=== PATIENT | female | born 1965 | race Caucasian/White ===

== ENCOUNTER 2017-03-05 13:04 | Observation (INO) | payer OTHER ==
[2017-03-05] MEDS ORDERED: diphenhydrAMINE INJ 50 MG/ML VIAL IVP STA (14:15)
[2017-03-05] MEDS ORDERED: SODIUM CHLORIDE 0.9% 1,000 ML IV ONE (14:15)
[2017-03-05] MEDS ORDERED: HYDROmorphone 1 MG/ML SYRINGE IVP STA (14:15)
[2017-03-05] MEDS ORDERED: PROCHLORPERAZINE 10 MG/2 ML VIAL IVP STA (14:15)
[2017-03-05] MEDS ORDERED: HYDROmorphone 1 MG/ML SYRINGE ONE (14:20)
[2017-03-05] MEDS ORDERED: diphenhydrAMINE INJ 50 MG/ML VIAL ONE (14:20)
[2017-03-05] MEDS ORDERED: PROCHLORPERAZINE 10 MG/2 ML VIAL ONE (14:21)
--- NOTE | 2017-03-05 14:24 | ED Physician Documentation ---
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 CC severe ROSAS for 6 days ROSAS is diffuse and sharp and stabbing severe - rates 03/25 presently reports a stiff neck but no fever no numbness or wekaness + NV denies trauma denies CO exposure states she has a migraine but on further questioning she does not actually have a hx of migraines, she gets a ROSAS maybe once a year, never had a ROSAS this bad or lasting this long Review of Systems Constitutional: denies: Fever, Chills Eyes: denies: Loss of vision Throat: denies: Sore throat Cardiac: denies: Chest pain / pressure Respiratory: denies: Dyspnea GI: reports: Nausea, Vomiting : denies: Now EGA (denies) Musculoskeletal: reports: Neck pain Neurologic: reports: Headache. denies: Focal weakness, Numbness, Head injury Endocrine: denies: Easy bruising / bleeding Immunocompromised: denies: Immunocompromised PD PAST MEDICAL HISTORY - Allergies Allergies/Adverse Reactions: Allergies Allergy/AdvReac Type Severity Reaction Status Date / Time No Known Drug Allergies Allergy Verified 03/05/17 13:08 PD ED PE NORMAL - Vitals Vital signs reviewed: Yes - General General: Alert and oriented X 3 - HEENT HEENT: PERRL, EOMI, Other (globes soft, no TA TTP) - Neck Neck: Other (can flex, states hurts) - Cardiac Cardiac: RRR - Respiratory Respiratory: No respiratory distress, Clear bilaterally - Derm Derm: Normal color - Extremities Extremities: No deformity - Neuro Neuro: Alert and oriented X 3, 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, No motor deficit, No sensory deficit - Psych Psych: Normal mood Results - Vitals Vitals: Vital Signs - 24 hr 03/05/17 03/05/17 03/05/17 13:06 14:20 15:38 Temperature 37.4 C 37.7 C H 38.4 C H Heart Rate 111 H 91 Respiratory 18 14 Rate Blood Pressure 139/88 H 133/84 H O2 Saturation 95 93 03/05/17 18:41 Temperature 37.1 C Heart Rate 88 Respiratory 20 Rate Blood Pressure 123/97 H O2 Saturation 95 Oxygen O2 Source Room air - Labs Labs: Microbiology 03/05/17 17:27 CSF Culture - Preliminary Cerebral Spinal Fluid Laboratory Tests 03/05/17 03/05/17 17:27 17:40 Sodium 133 L Potassium 3.6 Chloride 101 Carbon Dioxide 24 Anion Gap 8.0 BUN 15 Creatinine 0.6 Estimated GFR (MDRD) 106 Glucose 95 Calcium 8.2 L Total Bilirubin 0.9 AST 16 ALT 12 Alkaline Phosphatase 29 L Total Protein 6.7 Albumin 3.4 Globulin 3.3 Albumin/Globulin Ratio 1.0 Lipase 24 CSF Color COLORLESS CSF Clarity CLEAR Xanthrochromic ABSENT CSF WBC 325 H* CSF RBC 11 H CSF Cell Count Tube # CSF TUBE# 3 CSF Neutrophils 2 CSF Lymphocytes 85 H CSF Monocytes 13 L CSF Glucose 41 L CSF Total Protein 131 H - Rads (name of study) CTH Radiology: See rad report (neg) Procedures - Lumbar Puncture Position: Laying right side Location: L4-L5 Anesthesia: Local lidocaine CSF: Clear Other: Sterile prep and drape, Patient tolerated well, No complications, Bleeding, Other (written informed consent) PD MEDICAL DECISION MAKING - ED course ED course: pt initially afebrile, waiting for CT then spiked fever will get LP as well - was considering to rout SAH already CSF clear - gave 2 G rocephin pending results CSF low glucose high protein > 300 WBC (mostly lymphocytes) no organisms identified on gram stain hopefully viral - pt has been ill for 6 days and is still fairly well appearing but low glucose and high protein and > 100 WBC concerning gave vanco and ampicillin as well and pt placed in isolation she is on staff at [employer] and was working yesterday - house sup advised to determine need to identify who might have been exposed and determine who/when to consider prophylaxis Departure - Departure Disposition: ED Place in Observation Clinical Impression: Meningitis Condition: Fair
--- NOTE | 2017-03-05 17:02 | CT Preliminary Report ---
Exam: CT Head W/O IMPRESSION: Normal head CT. [facility] SITE ID: [id number]
--- NOTE | 2017-03-05 17:05 | CT Report ---
EXAM: CT HEAD EXAM DATE: 03/05/2017 04:51 PM. CLINICAL HISTORY: Severe stabbing ROSAS, no hx same. COMPARISON: None. TECHNIQUE: Multiaxial CT images were obtained from the foramen magnum to the vertex. IV contrast: Non e. Reformats: Coronal. In accordance with CT protocol optimization, one or more of the following dose reduction techniques w ere utilized for this exam: automated exposure control, adjustment of mA and/or KV based on patient s ize, or use of iterative reconstructive technique. FINDINGS: Parenchyma: No intraparenchymal hemorrhage. No evidence of mass, midline shift, or CT findings of inf arction. Smith-white differentiation is distinct. Extraaxial Spaces: Normal for age. No subdural or epidural collections identified. Ventricles: Normal in size and position. Sinuses: Imaged paranasal sinuses, orbits, and mastoids show no significant abnormality. Bones: No evidence of fracture or calvarial defect. Other: None. IMPRESSION: Normal head CT. [facility] Referring Provider Line: [phone] SITE ID: [id number]
[2017-03-05] MEDS ORDERED: ACETAMINOPHEN 1,000 MG/100 ML 100 ML IV STA (17:09)
[2017-03-05] MEDS ORDERED: ACETAMINOPHEN 1,000 MG/100 ML 100 ML IV ONE (17:16)
[2017-03-05] MEDS ORDERED: cefTRIAXone 2 GM in SODIUM CHLORIDE 0.9% MINIBAG 100 ML IV STA (17:37)
[2017-03-05] MEDS ORDERED: cefTRIAXone 2 GM VIAL ONE (17:46)
[2017-03-05 18:13] LABS: CSF - GLUCOSE 41 mg/dL (45-70)
[2017-03-05 18:14] LABS: BILIRUBIN,TOTAL 0.9 mg/dL (0.2-1.0); CALCIUM 8.2 mg/dL (8.5-10.3); CREATININE 0.6 mg/dL (0.4-1.0); POTASSIUM 3.6 mmol/L (3.5-5.0); TOTAL PROTEIN 6.7 g/dL (6.7-8.2)
[2017-03-05 18:44] LABS: CLARITY,CSF CLEAR (CLEAR); COLOR,CSF COLORLESS (COLORLESS); CSF XANTHOCHROMIA ABSENT (ABSENT)
[2017-03-05 18:51] LABS: WHITE BLOOD CELL,CSF 325 /mm^3 (0-5)
[2017-03-05 19:11] LABS: LYMPHOCYTES,CSF 85 % (40-80)
[2017-03-05] MEDS ORDERED: VANCOMYCIN INJ 1 GM in SODIUM CHLORIDE 0.9% 250 ML IV STA (19:17)
[2017-03-05] MEDS ORDERED: AMPICILLIN 2 GM in SODIUM CHLORIDE 0.9% MINIBAG 100 ML IV STA (19:18)
[2017-03-05] MEDS ORDERED: VANCOMYCIN 1 GM VIAL ONE (19:23)
[2017-03-05] MEDS ORDERED: HYDROcod/ACETAM 5/325 MG TABLET PO PRN (19:40)
[2017-03-05] MEDS ORDERED: ONDANSETRON 4 MG/2 ML VIAL IVP PRN (19:40)
[2017-03-05] MEDS ORDERED: ACETAMINOPHEN 325 MG TABLET PO PRN (19:40)
[2017-03-05] MEDS ORDERED: SODIUM CHLORIDE FLUSH 0.9% 10 ML SYRINGE IVP PRN (19:40)
[2017-03-05] MEDS ORDERED: VANCOMYCIN WEIGHT BASED (PHA COMPOUNDING) IV SCH (20:00)
[2017-03-05 20:16] LABS: BASOPHILS % (AUTO) 0.5 %; EOSINOPHILS % (AUTO) 0.5 %; HCT - HEMATOCRIT 39.6 % (37.0-47.0); HGB - HEMOGLOBIN 12.8 g/dL (12.0-16.0); LYMPHOCYTES % (AUTO) 18.9 %; MEAN CORPUSCULAR HEMOGLOBIN 27.7 pg (27.0-31.0); MEAN CORPUSCULAR HGB CONC 32.2 g/dL (32.0-36.0); MEAN CORPUSCULAR VOLUME 85.9 fL (81.0-99.0); MEAN PLATELET VOLUME 9.8 fL (7.9-10.8); MONOCYTES % (AUTO) 14.3 %; NEUTROPHILS % (AUTO) 65.8 %; RED BLOOD COUNT 4.62 10^6/uL (4.20-5.40); UNCORRECTED WHITE BLOOD COUNT 6.5 x10^3/uL; WHITE BLOOD COUNT 6.5 x10^3/uL (4.8-10.8)
[2017-03-05 20:42] LABS: BAND NEUTROPHILS % (MANUAL) 1 %; BASOPHILS % (MANUAL) 1 %; LYMPHOCYTES % (MANUAL) 21 %; NEUTROPHILS % (MANUAL) 61 %; NP AUTO DIFFERENTIAL? YES; NP MAN DIFFERENTIAL? NO; PLATELET ESTIMATE, MANUAL NORMAL (130-450,000) (NORMAL); PLATELET MORPHOLOGY 2+ GIANT PLATELETS (NORMAL)
[2017-03-05] MEDS ORDERED: VANCOMYCIN INJ 1 GM in SODIUM CHLORIDE 0.9% 250 ML IV SCH (22:00)
[2017-03-05 22:15] LABS: PH,URINE 6.5 PH (5.0-7.5)
[2017-03-05 22:18] LABS: BILIRUBIN,URINE NEGATIVE (NEGATIVE); UA CHARGE (STRIP ONLY) YES; UR CULTURE IF IND NOT INDICATED
[2017-03-05] MEDS: SODIUM CHLORIDE FLUSH 0.9% 10 ML SYRINGE IVP SCH (22:42)
[2017-03-05] MEDS: SODIUM CHLORIDE 0.9% 1,000 ML IV SCH (22:43)
[2017-03-05] MEDS: ACYCLOVIR INJ 700 MG in SODIUM CHLORIDE 0.9% 250 ML IV SCH (22:57)
[2017-03-05] MEDS ORDERED: AMPICILLIN 2 GM in SODIUM CHLORIDE 0.9% MINIBAG 100 ML IV SCH (23:00)
--- NOTE | 2017-03-06 02:20 | HISTORY & PHYSICAL EXAMINATION ---
DATE OF ADMISSION: 03/05/2017 PRIMARY CARE PROVIDER: Renaldo Vaughn MD. CHIEF COMPLAINT: Headache, nausea, vomiting. 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 Has no history of headaches. Has had some nausea and vomiting on occasion with this. N o recent exposures, no recent travel. Evaluation in the emergency room, CBC is still pending. She did have a CT of head without contrast, which showed normal head CT. She did have a lumbar puncture done with results still pending; however, CSF WBCs were 325, RBCs were 11, this was out of tube #3. Gluco se was 41 and total protein was 131. Her serum glucose was 95. She has no past medical history signif icant for meningitis or any recent viral infections. Denies sore throat. Denies abdominal pain, denie s cough, denies head congestion. PAST MEDICAL HISTORY: None. ALLERGIES: NO KNOWN DRUG ALLERGIES. MEDICATIONS UPON ADMISSION: None. SOCIAL HISTORY: Smoking about a pack per day. ALCOHOL: None. FAMILY MEDICAL HISTORY: No history of infectious processes or neurological problems. REVIEW OF SYSTEMS: Denies any diarrhea, constipation. All other review of systems are reviewed and ar e negative except for as in HPI. Denies any neurological deficits. No motor weakness. No sensory loss , no deficits in speech, no visual disturbances, except for some mild photophobia. PHYSICAL EXAMINATION VITAL SIGNS: Temperature T-max 38.4, heart rate is 91, blood pressure is 133/84. Room air saturation 95%. CONSTITUTIONAL: Middle-aged woman in mild pain distress. HEAD: Normocephalic, atraumatic. EYES: PERRLA-DC. EOMI. MOUTH: No lesions. NECK: No adenopathy. CHEST: Clear to auscultation. COR: Regular rate and rhythm, S1, S2 without murmur. ABDOMEN: Soft, nontender. Bowel sounds present. EXTREMITIES: No pedal edema. SKIN: No rashes. PSYCHIATRIC: Mood and affect are appropriate. NEUROLOGIC: Alert and oriented x3. Motor and sensory are intact bilaterally. LABORATORY: As above. CBC is pending. Sodium 133, potassium 3.6, chloride 101, bicarbonate 24, BUN 15 , creatinine 0.6, calculated GFR 106, glucose 95, calcium 8.2, total bilirubin 0.9, AST 16, ALT 12, a lkaline phosphatase 29, total protein 6.7, albumin 3.4, lipase 24. ASSESSMENT AND PLAN 1. Acute meningitis, question bacterial versus viral. Given the total white count, suspect not bacter ial, but will cover with IV Rocephin, IV ampicillin, and IV vancomycin until further labs come back. Also await CBC, platelets, difficile. Will also check a lactate level. We will go ahead and place in contact in respiratory droplet precaution isolation. 2. Deep venous thrombosis prophylaxis. We will use SCDs, avoid subcutaneous anticoagulant given recen t lumbar puncture. 3. Code status. The patient is FULL CODE. TIME SPENT: 60 minutes. JOB #: [id number] EXT JOB #:[id number]
[2017-03-06] MEDS ORDERED: IBUPROFEN 600 MG TABLET PO PRN (02:52)
[2017-03-06 06:02] LABS: BASOPHILS % (AUTO) 1.1 %; EOSINOPHILS # (AUTO) 0.1 10^3/uL (0.0-0.7); EOSINOPHILS % (AUTO) 1.8 %; HCT - HEMATOCRIT 38.7 % (37.0-47.0); HGB - HEMOGLOBIN 12.6 g/dL (12.0-16.0); LYMPHOCYTES % (AUTO) 22.9 %; MEAN CORPUSCULAR HEMOGLOBIN 27.8 pg (27.0-31.0); MEAN CORPUSCULAR HGB CONC 32.6 g/dL (32.0-36.0); MEAN CORPUSCULAR VOLUME 85.2 fL (81.0-99.0); MONOCYTES # (AUTO) 1.1 10^3/uL (0.0-1.0); MONOCYTES % (AUTO) 24.8 %; NEUTROPHILS # (AUTO) 2.2 10^3/uL (1.5-6.6); NEUTROPHILS % (AUTO) 49.4 %; RED BLOOD COUNT 4.54 10^6/uL (4.20-5.40); RED CELL DISTRIBUTION WIDTH 18.1 % (12.0-15.0); UNCORRECTED WHITE BLOOD COUNT 4.4 x10^3/uL; WHITE BLOOD COUNT 4.4 x10^3/uL (4.8-10.8)
[2017-03-06] MEDS: SODIUM CHLORIDE FLUSH 0.9% 10 ML SYRINGE IVP SCH (06:05)
[2017-03-06] MEDS ORDERED: SODIUM CHLORIDE 0.9% 250 ML IV ONE (06:11)
[2017-03-06] MEDS: ACYCLOVIR INJ 700 MG in SODIUM CHLORIDE 0.9% 250 ML IV SCH ×2 (06:22→13:55)
[2017-03-06 06:33] LABS: PLATELET ESTIMATE, MANUAL NORMAL (130-450,000) (NORMAL); PLATELET MORPHOLOGY NORMAL APPEARANCE (NORMAL)
[2017-03-06] MEDS ORDERED: FAMOTIDINE 20 MG TABLET PO SCH (09:00)
[2017-03-06] MEDS ORDERED: cefTRIAXone 2 GM in SODIUM CHLORIDE 0.9% MINIBAG 100 ML IV SCH (09:00)
[2017-03-06] MEDS ORDERED: POLYETHYLENE GLYCOL 3350 17 GM PACKET PO SCH (09:00)
[2017-03-06] MEDS: SODIUM CHLORIDE 0.9% 1,000 ML IV SCH (11:11)
--- NOTE | 2017-03-06 12:21 | Discharge Plan ---
Discharge Plan Disposition: Home, Self Care Condition: Stable Prescriptions: Ibuprofen [Motrin] 600 mg PO Q6HR PRN #15 tablet PRN Reason: T.38.5 and or pain Diet: Regular Activity Restrictions: No Restrictions (Take it easy for a few days until you feel better) Shower Restrictions: No Driving Restrictions: No Additional Instructions or Follow Up instructions: "Aseptic" meiningitis /Viral meningitis You came to the ED with ~ 6 days of symptoms of headaches, neck pain, light sensitivity and some nausea/vomiting and lack of appetite. No fever at home although you did have a low grade fever in the ED 38.3. CT of the head was normal A lumbar puncture (spinal tap) was most suggestive of viral meningitis ( intially you were "empirically" covered for bacterial meningitis (meaning protectively until we got results), but the spinal fluid and your presenting symptoms were consistent with viral meningitis especially after having had symptoms for 6 days. The main treatment for this is "supportive", rest, IVFluid. tylenol for headache. This does not require antibiotics Return to the ED if you have worsening symptoms worse headache, neck stiffness, fever with chills, confusion Incidentally on exam you do have a heart murmur An outpatient echocardiogram is recommended if you have not had one before (you may have had this for many years, but an echo is recommended) Try to look into smoking cessation for your general health No Smoking: If you smoke, Please STOP! Call for help. Follow-up with: Rei Vaughn MD [Primary Care Provider] - 1-2 Days (ensure symptoms improving before return to work. Can ping go back to work 03/09)
[2017-03-06 12:24] VITALS: BP 126/78
[2017-03-06] MEDS ORDERED: NICOTINE 21 MG PATCH TOP SCH (13:00)
--- NOTE | 2017-03-07 14:01 | DISCHARGE SUMMARY ---
DATE OF ADMISSION: 03/05/2017 DATE OF DISCHARGE: 03/06/2017 PRIMARY CARE PROVIDER: Bharat Rizo MD. She had seen various providers at the [facility]. DISCHARGE DIAGNOSIS: Viral meningitis. SECONDARY DIAGNOSES 1. Cardiac murmur, systolic. 2. Tobacco use. CONSULTATIONS: None. PROCEDURES: None. DIAGNOSTIC IMAGING STUDIES: CT of the head on 03/05/2017: Normal head CT. DIAGNOSTIC LABORATORY STUDIES: Hematology: White count 6.5, hemoglobin 12.8, hematocrit 39.6, platelets 138,000. On repeat the next day, white count 4.4, hemoglobin 12.6, hematocrit 38.7, platelets 129,000. Chemistries: Sodium 133, potassium 3.6, chloride 101, bicarbonate 24, BUN 15, creatinine 0.6, glucose 95 , calcium 8.2. AST and ALT 16 and 12, respectively. Alkaline phosphatase is 29, total protein 6.7, albumin 3.4. Lactate was 0.8. Urinalysis was unremarkable other than trace ketones. A lumbar puncture: Spinal fluid was colorless, clarity clear, white cells in the third tube of 325, red cells 11, lymphocytes 85%, monocytes 13, glucose 41, total protein 131. 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 She actually has had for a full 6 days prior to presentation, headaches, diffuse neck pain and mild photophobia. There was no confusion. There was mild nausea and vomiting that was not projectile. She dienied fever at home until time of presentation to ED. She has no recent exposures, no history of travel, and no history of oral or genital herpes. In the emergency room, a head CT was normal. She had no significant leukocytosis on her blood work and she was hemodynamically stable and had one single temperature of 38.3 in the emergency room with no fever or chills. An LP was notable for primarily lymphocytes as above, and her presentation was most consistent with a viral meningitis/aseptic meningitis. Of note, before the results of the LP were obtained, she was empirically started on acyclovir and ceftriaxone and vanco. However, the antibiotics and antiviral were stopped once the results of the lumbar puncture was obtained. She was given supportive care overnight with Motrin for pain and IV fluid. She was feeling improved enough the following day to tolerate oral intake and to go home. She was advised to be able to be off from work until approximately and to call Dr. Rizo's office for reevaluation around Monday. 2. Murmur Incidentally, on exam it was noted that she does have approximately 2- 3/6 systolic murmur. She has never had an echocardiogram and this will be recommended as an outpatient for baseline. 3. Tobacco use. She does smoke approximately a pack a day and is advised on cessation. DISCHARGE MEDICATIONS: Prescription for 15 tablets of Motrin 600 mg tablets every 6 hours p.r.n. pain. She has no other medications. PHYSICAL EXAMINATION ON THE DAY OF DISCHARGE VITAL SIGNS: Afebrile, heart rate 78, blood pressure 126/78, respiratory rate 16, and a single reading of 26, oxygen saturation 98% on room air. GENERAL: She is a very pleasant female who appears stated age, resting in bed, the shades are drawn. She admits still mild photophobia, does not appear to have significant discomfort with her eyes open HEENT: Oral mucosa is moist. Extraocular movements are intact. Pupils are equal. NECK: Does not have significant neck stiffness. RESPIRATORY: Her respirations are unlabored. CHEST: Clear to auscultation. HEART: Notable for S1, S2 with an approximately 2-3/6 systolic murmur loudest at the left upper sternal border. ABDOMEN: Rounded, soft, nontender. Positive bowel sounds. She is drinking coffee. She has no peripheral edema. SKIN: Warm and dry without diaphoresis. NEURO She is oriented to person, place and time and appropriate in conversation. ambulatory with no deficits 19:9:00 JOB #: [id number] EXT JOB #:[id number] [facility] MED[facility] CENTERChandni
== END 2017-03-06 15:04 | disposition home or self-care (01) ==
LOC: ED 13:04 → MS 19:40
PROVIDERS: ADMIT Specialist; ATTEND Specialist
DX: A87.9 Viral meningitis, unspecified (principal); R01.1 Cardiac murmur, unspecified; F17.210 Nicotine dependence, cigarettes, uncomplicated
CPT/HCPCS: 36415; 62270; 70450; 80053; 81003; 82945; 83605; 83690; 84157; 85025; 87070; 87205; 87529; 89051; 96361; 96365; 96366; 96367; 96375; 99217; 99218; 99284; A9270; J0131; J0133; J1170; J3370; 80048; 81001; 87086; 99283

== ENCOUNTER 2017-03-08 08:34 | Emergency (ER) | payer OTHER ==
--- NOTE | 2017-03-08 09:25 | ED Physician Documentation ---
PD HPI HEADACHE - Stated complaint Stated Complaint: MIGRAINE - Chief complaint Chief Complaint: General - History obtained from History obtained from: Patient - History of Present Illness Timing - onset: How many weeks ago (about a week ago and was seen in ED 2 days ago, with Dx of viral meningitis) Timing - onset during: Light activity Timing - duration: Weeks (1) Timing - details: Gradual onset, Still present Worst headache ever?: Worst headache ever? (similar to this past week.) Location: Global Associated symptoms: Fever, Nausea, Weakness (generalized). No: Vomiting, Numbness Improved by: No: Rest, Dark room Worsened by: No: Light Contributing factors: Recent illness Similar symptoms before: Diagnosis (viral meningitis) Recently seen: Emergency Dept, Admitted (for treatment of meningitis, with final Dx of viral. Was in hospital only 1 day. Discharged feeling better but without any Rx meds.) Review of Systems Constitutional: reports: Chills, Myalgias. denies: Fever (not the past 2 days.) Ears: reports: Loss of hearing PD PAST MEDICAL HISTORY - Past Medical History Past Medical History: Yes Cardiovascular: None Respiratory: None Neuro: None Endocrine/Autoimmune: None GI: None : None HEENT: None Psych: None Musculoskeletal: None Derm: None Other Past Medical History: meningitis - Past Surgical History Past Surgical History: No Derm: Other - Present Medications Home Medications: Ambulatory Orders Medication Instructions Recorded Confirmed Acetaminophen [Tylenol] 650 mg PO Q4HR PRN #0 tablet 03/06/17 03/08/17 Ibuprofen [Motrin] 600 mg PO Q6HR PRN #15 tablet 03/06/17 03/08/17 Dexamethasone [Decadron] 4 mg PO DAILY #5 tablet 03/08/17 Hydrocodone/Acetaminophen [[place] 1 each PO Q6H PRN #20 tablet 03/08/17 5-325 Tablet] Ondansetron HCl [Zofran] 4 mg PO Q6H PRN #20 tablet 03/08/17 - Allergies Allergies/Adverse Reactions: Allergies Allergy/AdvReac Type Severity Reaction Status Date / Time No Known Drug Allergies Allergy Verified 03/08/17 08:55 - Social History Does the pt smoke?: Yes Smoking Status: Current every day smoker Does the pt drink ETOH?: No Does the pt have substance abuse?: No - Immunizations Immunizations: TDAP >10years/unknown - POLST Patient has POLST: No PD ED PE NORMAL - Vitals Vital signs reviewed: Yes - General General: Alert and oriented X 3, Well developed/nourished, Other (appears in pain and nauseated) - HEENT HEENT: Ears normal, Pharynx benign - Neck Neck: Supple, no meningeal sign, No adenopathy - Cardiac Cardiac: RRR, No murmur - Respiratory Respiratory: Clear bilaterally - Abdomen Abdomen: Normal bowel sounds, Soft, Non tender, Non distended - Back Back: No CVA TTP - Derm Derm: Normal color, Warm and dry, No rash - Extremities Extremities: Normal ROM s pain, No edema, No calf tenderness / cord - Neuro Neuro: Alert and oriented X 3, No motor deficit, No sensory deficit, Normal speech - Psych Psych: Normal mood Results - Vitals Vitals: Vital Signs - 24 hr 03/08/17 03/08/17 03/08/17 08:39 10:30 12:57 Temperature 36.5 C Heart Rate 85 72 67 Respiratory 14 16 16 Rate Blood Pressure 132/93 H 143/73 H 104/67 O2 Saturation 96 98 95 03/08/17 14:57 Temperature 36.2 C L Heart Rate 69 Respiratory 16 Rate Blood Pressure 102/62 O2 Saturation 95 Oxygen O2 Source Room air - Labs Labs: Laboratory Tests 03/08/17 03/08/17 03/08/17 10:22 10:22 12:37 WBC 5.0 RBC 4.50 Hgb 12.8 Hct 38.3 MCV 85.0 MCH 28.5 MCHC 33.5 RDW 18.1 H Plt Count 151 MPV 9.3 Neut # 2.8 Lymph # 1.2 L [place] # 0.7 Eos # 0.1 Baso # 0.1 Absolute Nucleated RBC 0.00 Nucleated RBCs 0.0 Manual Slide Review Indicated Platelet Estimate NORMAL (130-450,000) Platelet Morphology RARE GIANT PLATELETS RBC Morph Micro Appear NORMAL APPEARANCE Sodium 140 Potassium 3.4 L Chloride 103 Carbon Dioxide 27 Anion Gap 10.0 BUN 13 Creatinine 0.6 Estimated GFR (MDRD) 106 Glucose 103 H Calcium 8.7 Magnesium 2.0 Total Bilirubin 0.6 AST 17 ALT 13 Alkaline Phosphatase 26 L Total Protein 7.1 Albumin 3.6 Globulin 3.5 Albumin/Globulin Ratio 1.0 Lipase 33 Urine Color YELLOW Urine Clarity CLEAR Urine pH 6.0 Ur Specific [place] 1.015 Urine Protein NEGATIVE Urine Glucose (UA) NEGATIVE Urine Ketones 15 H Urine Occult Blood MODERATE H Urine Nitrite NEGATIVE Urine Bilirubin NEGATIVE Urine Urobilinogen 1 (NORMAL) Ur Leukocyte Esterase NEGATIVE Urine RBC 0-5 Urine WBC 0-3 Ur Squamous Epith Cells MOD Squamous H Urine Bacteria Rare Ur Microscopic Review INDICATED Urine Culture Comments NOT INDICATED PD MEDICAL DECISION MAKING - ED course Complexity details: reviewed old records, reviewed results, considered differential (still with meningitic symptoms since discharge, and discharged without Rx for meds. She is feeling much better after IV fluids and meds. Taking oral fluids/food, looks happy.), d/w patient Departure - Departure Disposition: Home, Self Care Clinical Impression: Viral meningitis, Nausea Headache Qualifiers: Headache type: other headache syndrome Qualified Code(s): G44.89 - Other headache syndrome Condition: Stable Record reviewed to determine appropriate education?: Yes Instructions: ED Meningitis Viral Follow-Up: Rei Vaughn MD [Primary Care Provider] - Prescriptions: Dexamethasone [Decadron] 4 mg PO DAILY #5 tablet Hydrocodone/Acetaminophen [[place] 5-325 Tablet] 1 each PO Q6H PRN #20 tablet PRN Reason: Pain Ondansetron HCl [Zofran] 4 mg PO Q6H PRN #20 tablet PRN Reason: Nausea / Vomiting Comments: Drink lots of fluids. Decadron daily for 5 days for inflammation. Zofran as needed for nausea. Tylenol or Ibuprofen for pain and add hydrocodone as needed. Rest for few more days. Recheck if not improved over the next few days. Forms: Activity restrictions Discharge Date/Time: 03/08/17 14:58
[2017-03-08] MEDS ORDERED: ONDANSETRON 4 MG/2 ML VIAL IVP STA (10:02)
[2017-03-08] MEDS ORDERED: KETOROLAC 60 MG/2 ML VIAL IVP STA (10:02)
[2017-03-08] MEDS ORDERED: DEXAMETHASONE 10 MG/ML VIAL IVP STA (10:02)
[2017-03-08] MEDS ORDERED: SODIUM CHLORIDE 0.9% 1,000 ML IV ONE ×3 (10:02→13:28)
[2017-03-08] MEDS ORDERED: HYDROmorphone 1 MG/ML SYRINGE IVP STA (10:02)
[2017-03-08] MEDS ORDERED: KETOROLAC 30 MG/ML VIAL ONE (10:05)
[2017-03-08] MEDS ORDERED: ONDANSETRON 4 MG/2 ML VIAL ONE (10:05)
[2017-03-08] MEDS ORDERED: DEXAMETHASONE 10 MG/ML VIAL ONE (10:05)
[2017-03-08] MEDS ORDERED: HYDROmorphone 1 MG/ML SYRINGE ONE (10:05)
[2017-03-08 10:36] LABS: BASOPHILS # (AUTO) 0.1 10^3/uL (0.0-0.1); EOSINOPHILS # (AUTO) 0.1 10^3/uL (0.0-0.7); EOSINOPHILS % (AUTO) 2.6 %; HCT - HEMATOCRIT 38.3 % (37.0-47.0); HGB - HEMOGLOBIN 12.8 g/dL (12.0-16.0); LYMPHOCYTES # (AUTO) 1.2 10^3/uL (1.5-3.5); LYMPHOCYTES % (AUTO) 25.1 %; MEAN CORPUSCULAR HEMOGLOBIN 28.5 pg (27.0-31.0); MEAN CORPUSCULAR HGB CONC 33.5 g/dL (32.0-36.0); MEAN PLATELET VOLUME 9.3 fL (7.9-10.8); MONOCYTES # (AUTO) 0.7 10^3/uL (0.0-1.0); MONOCYTES % (AUTO) 14.2 %; NEUTROPHILS # (AUTO) 2.8 10^3/uL (1.5-6.6); NEUTROPHILS % (AUTO) 57.1 %; RED CELL DISTRIBUTION WIDTH 18.1 % (12.0-15.0)
[2017-03-08 10:46] LABS: BILIRUBIN,TOTAL 0.6 mg/dL (0.2-1.0); CALCIUM 8.7 mg/dL (8.5-10.3); CREATININE 0.6 mg/dL (0.4-1.0); POTASSIUM 3.4 mmol/L (3.5-5.0); TOTAL PROTEIN 7.1 g/dL (6.7-8.2)
[2017-03-08 10:52] LABS: PLATELET ESTIMATE, MANUAL NORMAL (130-450,000) (NORMAL); PLATELET MORPHOLOGY RARE GIANT PLATELETS (NORMAL)
[2017-03-08 13:48] LABS: BILIRUBIN,URINE NEGATIVE (NEGATIVE)
[2017-03-08 14:07] LABS: UA w/ MICROSCOPIC CHARGE YES; WBC,URINE 0-3 /HPF (0-5)
[2017-03-08 14:08] LABS: UR CULTURE IF IND NOT INDICATED
[2017-03-08 14:58] VITALS: BP 102/62
--- NOTE | 2017-03-08 16:00 | ED Physician Documentation ---
ED Addendum - Addendum Addendum: 03/08/17 15:59 unscheduled return visit - chart accessed for follow up and educational purposes
== END 2017-03-08 14:58 | disposition home or self-care (01) ==
LOC: ED 08:34
DX: A87.9 Viral meningitis, unspecified (principal); G44.89 Other headache syndrome; F17.200 Nicotine dependence, unspecified, uncomplicated
CPT/HCPCS: 36415; 80053; 81001; 83690; 83735; 85025; 96374; 96375; 99284; J1170; 81003; 87086

== ENCOUNTER 2017-03-28 13:41 | Outpatient (CLI) | payer OTHER ==
[2017-03-28 14:11] LABS: BASOPHILS # (AUTO) 0.1 10^3/uL (0.0-0.1); BASOPHILS % (AUTO) 0.8 %; EOSINOPHILS # (AUTO) 0.1 10^3/uL (0.0-0.7); EOSINOPHILS % (AUTO) 1.7 %; HCT - HEMATOCRIT 40.7 % (37.0-47.0); HGB - HEMOGLOBIN 13.5 g/dL (12.0-16.0); LYMPHOCYTES # (AUTO) 1.4 10^3/uL (1.5-3.5); LYMPHOCYTES % (AUTO) 20.3 %; MEAN CORPUSCULAR HEMOGLOBIN 28.6 pg (27.0-31.0); MEAN CORPUSCULAR HGB CONC 33.1 g/dL (32.0-36.0); MEAN CORPUSCULAR VOLUME 86.3 fL (81.0-99.0); MEAN PLATELET VOLUME 8.8 fL (7.9-10.8); MONOCYTES # (AUTO) 0.6 10^3/uL (0.0-1.0); MONOCYTES % (AUTO) 9.3 %; NEUTROPHILS # (AUTO) 4.7 10^3/uL (1.5-6.6); NEUTROPHILS % (AUTO) 67.9 %; RED BLOOD COUNT 4.72 10^6/uL (4.20-5.40); RED CELL DISTRIBUTION WIDTH 17.5 % (12.0-15.0); UNCORRECTED WHITE BLOOD COUNT 6.9 x10^3/uL; WHITE BLOOD COUNT 6.9 x10^3/uL (4.8-10.8)
[2017-03-28 14:14] LABS: ALBUMIN/GLOBULIN RATIO 1.2 (1.0-2.2); BILIRUBIN,TOTAL 0.6 mg/dL (0.2-1.0); CALCIUM 8.8 mg/dL (8.5-10.3); CREATININE 0.6 mg/dL (0.4-1.0); POTASSIUM 3.9 mmol/L (3.5-5.0); TOTAL PROTEIN 7.4 g/dL (6.7-8.2)
[2017-03-28 15:34] LABS: THYROID STIMULATING HORMONE 1.88 uIU/mL (0.34-5.60)
== END 2017-03-28 13:42 | disposition home or self-care (01) ==
LOC: LAB 13:41
PROVIDERS: ATTEND Physician Assistant Medical
DX: A87.9 Viral meningitis, unspecified (principal)
CPT/HCPCS: 36415; 80053; 82306; 82607; 84443; 85025

== ENCOUNTER 2017-04-17 11:05 | Outpatient (CLI) | payer OTHER | END 2017-04-17 11:06 | disposition home or self-care (01) | LOC: DI 11:05 | PROVIDERS: ATTEND Physician Assistant Medical | DX: R01.1 Cardiac murmur, unspecified (principal) | CPT/HCPCS: 93306 ==

== ENCOUNTER 2019-11-26 06:14 | Outpatient (CLI) | payer BC ==
[2019-11-26 06:43] LABS: ALBUMIN/GLOBULIN RATIO 1.1 (1.0-2.2); BILIRUBIN,TOTAL 0.8 mg/dL (0.2-1.0); CREATININE 0.7 mg/dL (0.4-1.0); TOTAL PROTEIN 7.8 g/dL (6.7-8.2)
== END 2019-11-26 06:15 | disposition home or self-care (01) ==
LOC: LAB 06:14
PROVIDERS: ATTEND Physician Assistant Medical
DX: I42.2 Other hypertrophic cardiomyopathy (principal); R53.83 Other fatigue; R74.8 Abnormal levels of other serum enzymes
CPT/HCPCS: 36415; 80053; 84443

== ENCOUNTER 2022-03-08 13:04 | Emergency (ER) | payer BC ==
[2022-03-08 13:54] LABS: BASOPHILS # (AUTO) 0.1 10^3/uL (0.0-0.1); BASOPHILS % (AUTO) 0.8 %; EOSINOPHILS # (AUTO) 0.2 10^3/uL (0.0-0.7); EOSINOPHILS % (AUTO) 2.3 %; HCT - HEMATOCRIT 21.5 % (37.0-47.0); LYMPHOCYTES # (AUTO) 1.8 10^3/uL (1.5-3.5); LYMPHOCYTES % (AUTO) 20.5 %; MEAN CORPUSCULAR HEMOGLOBIN 19.3 pg (27.0-31.0); MEAN CORPUSCULAR HGB CONC 27.4 g/dL (32.0-36.0); MEAN CORPUSCULAR VOLUME 70.5 fL (81.0-99.0); MEAN PLATELET VOLUME 9.5 fL (7.9-10.8); MONOCYTES # (AUTO) 0.8 10^3/uL (0.0-1.0); MONOCYTES % (AUTO) 9.2 %; NEUTROPHILS # (AUTO) 5.7 10^3/uL (1.5-6.6); NEUTROPHILS % (AUTO) 66.9 %; NRBC ABSOLUTE COUNT (AUTO) 0.03 x10^3/uL; NUCLEATED RED BLOOD CELLS AUTO 0.3 /100WBC; PLT - PLATELET COUNT 356 10^3/uL (130-450); RED BLOOD COUNT 3.05 10^6/uL (4.20-5.40); RED CELL DISTRIBUTION WIDTH 20.4 % (12.0-15.0); WHITE BLOOD COUNT 8.6 x10^3/uL (4.8-10.8)
[2022-03-08 13:59] LABS: HGB - HEMOGLOBIN 5.9 g/dL (12.0-16.0)
--- NOTE | 2022-03-08 16:20 | ED Physician Documentation ---
History of Present Illness - Stated complaint Stated Complaint: LOW HEMOGLOBIN - Chief complaint Chief Complaint: General - History obtained from History obtained from: Patient - History of Present Illness Timing: How many weeks ago (5-6) - Additonal information Additional information: Previously well 56-year-old female reports that about 5 to 6 weeks ago she began to feel that she was very fatigued and was having a hard time with any significant physical exertion. She developed exertional dyspnea. She eventually went into see the primary care doctor about this and she had blood drawn yesterday was called back by the primary care doctor and instructed to come to the emergency department for severe anemia. She presents to the emergency department with blood work showing a hemoglobin of 5.3 yesterday. She has not had anemia previously. She does have a prior history of cardiomyopathy about 5 years ago. She has not seen a spring repairer helper hand in follow-up. Review of Systems Constitutional: denies: Fever Eyes: denies: Decreased vision Ears: denies: Ear pain Nose: denies: Congestion Throat: denies: Sore throat Cardiac: denies: Chest pain / pressure, Palpitations Respiratory: reports: Dyspnea. denies: Cough GI: denies: Abdominal Pain, Nausea, Vomiting, Constipation, Diarrhea, Bloody / black stool : denies: Dysuria Skin: denies: Rash, Lesions Musculoskeletal: denies: Neck pain, Back pain, Extremity pain Neurologic: reports: Generalized weakness. denies: Focal weakness, Numbness PD PAST MEDICAL HISTORY - Past Medical History Past Medical History: Yes Cardiovascular: Hypertension, Other Respiratory: None Neuro: None Endocrine/Autoimmune: None GI: None DAIRY PROCESSING SUPERVISOR: None : None HEENT: None Psych: None Musculoskeletal: None Derm: None Other Past Medical History: cardiomyopathy - Past Surgical History Past Surgical History: No /DAIRY PROCESSING SUPERVISOR: Tubal ligation Derm: Other - Present Medications Home Medications: Ambulatory Orders Medication Instructions Recorded Confirmed Metoprolol Succinate [Toprol Xl] 25 mg PO DAILY 03/08/22 03/08/22 - Allergies Allergies/Adverse Reactions: Allergies Allergy/AdvReac Type Severity Reaction Status Date / Time No Known Drug Allergies Allergy Verified 03/08/22 13:10 - Social History Does the pt smoke?: No Smoking Status: Former smoker Does the pt drink ETOH?: No Does the pt have substance abuse?: No - Immunizations Immunizations are current?: Yes Immunizations: TDAP >10years/unknown - POLST Patient has POLST: No PD ED PE NORMAL - Vitals Vital signs reviewed: Yes (Hypertensive) - General General: Alert and oriented X 3, No acute distress, Well developed/nourished, Other (Pale appearing female with a big smile on her face is in no distress.) - HEENT HEENT: Atraumatic, PERRL, EOMI, Other (Pale sclera) - Neck Neck: Supple, no meningeal sign, No bony TTP - Cardiac Cardiac: RRR, No murmur - Respiratory Respiratory: No respiratory distress, Clear bilaterally - Abdomen Abdomen: Normal bowel sounds, Soft, Non tender, Non distended, No organomegaly - Rectal Rectal: Other (with Jose as fact checker a rectal exam is performed with formed brown guiac negative stool ) - Back Back: No CVA TTP, No spinal TTP - Derm Derm: Normal color, Warm and dry, No rash - Extremities Extremities: No deformity, No edema - Neuro Neuro: Alert and oriented X 3, hand straightener 2-12 intact, No motor deficit, No sensory deficit, Normal speech Eye Opening: Spontaneous Motor: Obeys Commands Verbal: Oriented GCS Score: 15 - Psych Psych: Normal mood, Normal affect Results - Vitals Vitals: Vital Signs - 24 hr 03/08/22 03/08/22 03/08/22 13:06 14:09 15:10 Temperature 36.5 C 37.3 C Heart Rate 97 81 79 Respiratory 14 18 18 Rate Blood Pressure 138/84 H 170/100 H 173/87 H O2 Saturation 99 99 03/08/22 03/08/22 03/08/22 15:25 16:22 17:14 Temperature 37.1 C 37.3 C 37.6 C Heart Rate 75 77 73 Respiratory 20 20 24 Rate Blood Pressure 153/81 H 157/76 H 163/89 H O2 Saturation 03/08/22 17:43 Temperature 37.7 C Heart Rate 72 Respiratory 24 Rate Blood Pressure 157/82 H O2 Saturation Oxygen O2 Source Room air - Labs Labs: Microbiology 03/08/22 16:32 Occult Blood - Final Stool Laboratory Tests 03/08/22 03/08/22 03/08/22 13:50 13:50 14:10 WBC 8.6 RBC 3.05 L Hgb 5.9 L* Hct 21.5 L MCV 70.5 L MCH 19.3 L MCHC 27.4 L RDW 20.4 H Plt Count 356 MPV 9.5 Neut # (Auto) 5.7 Lymph # (Auto) 1.8 Mercer # (Auto) 0.8 Eos # (Auto) 0.2 Baso # (Auto) 0.1 Absolute Nucleated RBC 0.03 Nucleated RBC % 0.3 Blood Type A NEGATIVE Blood Type Recheck A NEGATIVE Antibody Screen NEGATIVE Crossmatch IS Only See Detail 03/08/22 18:14 WBC RBC Hgb 7.1 L Hct 26.0 L MCV MCH MCHC RDW Plt Count MPV Neut # (Auto) Lymph # (Auto) Mercer # (Auto) Eos # (Auto) Baso # (Auto) Absolute Nucleated RBC Nucleated RBC % Blood Type Blood Type Recheck Antibody Screen Crossmatch IS Only Procedures - IVC sono (time) 1640 Bedside IVC sono: IVC measures (cm) (1.82), IVC collapsed c insp (cm) (1.22), Collapsibility index (0.32), Euvolemia PD MEDICAL DECISION MAKING - ED course Complexity details: reviewed results, re-evaluated patient, considered differential, d/w patient ED course: 56-year-old female with a 6-week history of excessive fatigue and dyspnea is found to be critically anemic on evaluation by her primary care doctor and sent to the emergency department for transfusion. She was transfused a unit of blood here. She has had symptoms for 5-6 weeks and there is no evidence of acute blood loss. Indicies demonstrate microcytic anemia with RDW of 20. She appears to be making blood. She will need hematology follow up and she may need more blood. Departure - Departure Disposition: 01 Home, Self Care Clinical Impression: Anemia Qualifiers: Anemia type: unspecified type Qualified Code(s): D64.9 - Anemia, unspecified Condition: Stable Instructions: ED Anemia Type Not Specified Follow-Up: Analy Lowry PA-C [Primary Care Provider] - Comments: Leticia, today your anemia is profound and we have transfused to a single unit of blood. You may actually need more blood and a follow-up with the identification technician is indicated. Follow-up with your primary for referral. As this is happened to use slowly what ever the underlying process is should proceed slowly. We did not find any evidence of bleeding today. You will need to follow up with your primary for repeat blood work. If you need more blood this can be done in the [facility].
[2022-03-08 18:20] LABS: HGB - HEMOGLOBIN 7.1 g/dL (12.0-16.0)
[2022-03-08 18:50] VITALS: BP 154/76
== END 2022-03-08 19:15 | disposition home or self-care (01) ==
LOC: ED 13:04
DX: D64.9 Anemia, unspecified (principal); Z87.891 Personal history of nicotine dependence; I10 Essential (primary) hypertension
CPT/HCPCS: 36415; 36430; 82272; 85014; 85018; 85025; 86850; 86900; 86901; 86920; 99283; P9016; 82274

== ENCOUNTER 2022-03-29 13:17 | Outpatient (CLI) | payer BC ==
[2022-03-29 13:32] LABS: ABSOLUTE RETICS # AUTO 0.037 10^6/uL (0.020-0.110); BASOPHILS % (AUTO) 0.9 %; HCT - HEMATOCRIT 28.4 % (37.0-47.0); HGB - HEMOGLOBIN 7.8 g/dL (12.0-16.0); LYMPHOCYTES % (AUTO) 25.1 %; MEAN CORPUSCULAR HEMOGLOBIN 19.4 pg (27.0-31.0); MEAN CORPUSCULAR HGB CONC 27.5 g/dL (32.0-36.0); MEAN CORPUSCULAR VOLUME 70.5 fL (81.0-99.0); MEAN PLATELET VOLUME 10.2 fL (7.9-10.8); MONOCYTES % (AUTO) 9.7 %; PLT - PLATELET COUNT 455 10^3/uL (130-450); RED BLOOD COUNT 4.03 10^6/uL (4.20-5.40); RED CELL DISTRIBUTION WIDTH 20.5 % (12.0-15.0); RETICULOCYTE COUNT % (AUTO) 0.92 % (0.5-2.3)
[2022-03-29 13:34] LABS: SLIDE REVIEW? Indicated
[2022-03-29 13:52] LABS: % IRON SATURATION 3 % (20-50); IRON 16 ug/dL (28-170); TOTAL IRON BINDING CAPACITY 623 ug/dL (250-450); TRANSFERRIN 445 mg/dL (192-382)
[2022-03-29 14:01] LABS: DIFFERENTIAL COMMENT MANUAL DIFFERENTIAL
[2022-03-29 14:02] LABS: MONOCYTES # (MANUAL) 0.5 10^3/uL (0.0-1.0); SLIDE SENT FOR PATH REVIEW? Indicated
[2022-03-29 14:03] LABS: BAND NEUTROPHILS % (MANUAL) 1 %; EOSINOPHILS # (MANUAL) 0.3 10^3/uL (0-0.7); LYMPHOCYTES # (MANUAL) 2.3 10^3/uL (1.5-3.5); LYMPHOCYTES % (MANUAL) 25 %; NEUTROPHILS # (MANUAL) 4.9 10^3/uL (1.5-6.6); REACTIVE LYMPHS % (MANUAL) 4 %
[2022-03-31 09:51] LABS: PATHOLOGIST SLIDE COMMENTS SEE SEPARATE REPORT
== END 2022-03-29 13:18 | disposition home or self-care (01) ==
LOC: LAB 13:17
PROVIDERS: ATTEND Physician Assistant
DX: D50.9 Iron deficiency anemia, unspecified (principal)
CPT/HCPCS: 36415; 82728; 83540; 84466; 85025; 85045

== ENCOUNTER 2022-06-23 13:12 | Outpatient (CLI) | payer BC ==
--- NOTE | 2022-06-23 17:29 | CT Report ---
PROCEDURE: Low Dose Lung Cancer Screen INDICATIONS: SCREENING FOR LUNG CA TECHNIQUE: Noncontrast low-dose axial images were acquired from the pulmonary apices to the posterior costophren ic angles. Multiplanar MIP reformats were then reconstructed. For radiation dose reduction, the follo wing was used: automated exposure control, adjustment of mA and/or kV according to patient size. COMPARISON: None. FINDINGS: Image quality: Excellent. Lungs and pleura: 6 mm anterior right lobe nodule seen on series 4 image 159 is present. No priors a re available for comparison. No consolidations or effusions. Mediastinum: Heart size is normal. No pericardial effusion. No mediastinal adenopathy by size crit eria. Thoracic aorta and central pulmonary arteries are normal in size. Esophagus is normal in valerie juanita. No hiatal hernia. Bones and chest wall: No suspicious bony lesions. No vertebral body compression fractures. No axil mariola or supraclavicular adenopathy by size criteria. The thyroid is normal in size and there are no incidental findings. Abdomen: Punctate nonobstructing left renal calculus. Otherwise, visualized upper abdomen solid organ s and bowel loops appear normal in the absence of contrast. IMPRESSION: 6 mm anterior right nodule as above. It is overall nonspecific and no priors are available for compar guanako. Lung rads category 3. [address] follow-up. CLINICAL RECOMMENDATION STATEMENTS: In patients <35 years with an ITN detected on CT, MRI, or extrathyroidal ultrasound, the Committee re commends further evaluation with dedicated thyroid ultrasound if the nodule is "e1 cm and has no susp icious imaging features, and if the patient has normal life expectancy. In patients "e35 years with an ITN detected on CT, MRI, or extrathyroidal ultrasound, the Committee r ecommends further evaluation with dedicated thyroid ultrasound if the nodule is "e1.5 cm and has no s uspicious imaging features, and if the patient has normal life expectancy. (ACR, 2014) Reviewed by: Nicole Aguero MD on 06/23/2022 5:28 PM PDT Approved by: Nicole Aguero MD on 06/23/2022 5:28 PM PDT Station ID: [id number]
== END 2022-06-23 13:13 | disposition home or self-care (01) ==
LOC: DI 13:12
PROVIDERS: ATTEND Physician Assistant
DX: Z12.2 Encounter for screening for malignant neoplasm of respiratory organs (principal); R91.1 Solitary pulmonary nodule

== ENCOUNTER 2022-06-23 13:14 | Outpatient (CLI) | payer BC ==
--- NOTE | 2022-06-24 08:05 | Mammography Report ---
BILATERAL DIGITAL SCREENING MAMMOGRAM 3D/2D: 06/23/2022 CLINICAL: Routine screening. No prior exams were available for comparison. Both breasts are heterogeneously dense, which may obscure small masses (category c / 51-75% glandula r tissue). No significant masses, calcifications, or other findings are seen in either breast. IMPRESSION: NEGATIVE There is no mammographic evidence of malignancy. A 1 year screening mammogram is recommended. Based on the Tyrer Cuzick model (a risk assessment model) the patients lifetime risk is 8.7% and her 10 year risk is 2.6%. According to the ACR, ACS, and NCCN guidelines, an annual breast MRI exam shilpa g with mammogram is recommended if the patients lifetime risk is 20% or greater. This exam was interpreted at Station ID: [id number]. NOTE: For mammograms, a report in lay terms will be sent to the patient. Approximately 15% of breast malignancies will not be visualized mammographically. In the management of a palpable breast mass, a negative mammogram must not discourage biopsy of a clinically suspicious lesion. Electronically Signed By: Tong madden/penrad:06/23/2022 14:09:03 ACR BI-RADS Category 1: Negative 3341F PARENCHYMAL PATTERN: (D) - The breast(s) demonstrate(s) heterogeneously dense fibroglandular dane kebede. BI-RADS CATEGORY: (1) - 1 RECOMMENDATION: (ANNUAL) - Recommend routine annual screening mammography. [id number] 1 year screening LATERALITY: (B)
== END 2022-06-23 13:15 | disposition home or self-care (01) ==
LOC: DI 13:14
PROVIDERS: ATTEND Physician Assistant
DX: Z12.31 Encounter for screening mammogram for malignant neoplasm of breast (principal)

== ENCOUNTER 2022-12-22 16:09 | Outpatient (CLI) | payer BC ==
--- NOTE | 2022-12-22 17:25 | CT Report ---
PROCEDURE: CHEST WO INDICATIONS: PULMONARY NODULE TECHNIQUE: Noncontrast 1mm axial images were acquired from the pulmonary apices to the posterior costophrenic an gles. Axial 5 mm soft tissue kernel reconstructions were performed as well as 8 mm axial MIP and cor onal and sagittal 5 mm reformations. For radiation dose reduction, the following was used: automate d exposure control, adjustment of mA and/or kV according to patient size. COMPARISON: CT 06/23/2022 FINDINGS: Image quality: Excellent. Lungs and pleura: Mild centrilobular emphysema. Stable 4 mm right middle lobe nodule (4/158). Mediastinum: Heart size is normal. No pericardial effusion. No mediastinal adenopathy by size crit eria. Thoracic aorta and central pulmonary arteries are normal in size. Esophagus is normal in valerie juanita. No hiatal hernia. Bones and chest wall: No suspicious bony lesions. No vertebral body compression fractures. No axil mariola or supraclavicular adenopathy by size criteria. The thyroid is normal in size and there are no incidental findings. Abdomen: Punctate nonobstructing left-sided nephrolithiasis. IMPRESSION: Stable 4 mm right middle lobe nodule. Lung-RADS 2. Continued annual screening is recommended if eligi ble. Reviewed by: Ciaran Nam on 12/22/2022 5:24 PM PST Approved by: Ciaran Nam on 12/22/2022 5:24 PM PST Station ID: [id number]
== END 2022-12-22 16:10 | disposition home or self-care (01) ==
LOC: DI 16:09
PROVIDERS: ATTEND Family Medicine
DX: R91.1 Solitary pulmonary nodule (principal)

== ENCOUNTER 2024-06-24 15:33 | Emergency (ER) | payer BC ==
[2024-06-24 15:57] LABS: HCT - HEMATOCRIT 24.9 % (37.0-47.0); HGB - HEMOGLOBIN 7.1 g/dL (12.0-16.0)
--- NOTE | 2024-06-24 17:21 | ED Physician Documentation ---
History of Present Illness - Stated complaint Stated Complaint: SOA/WEAK - Chief complaint Chief Complaint: General - History obtained from History obtained from: Patient - Additonal information Additional information: She has a history of chronic unclear anemia. She has had upper and lower scopes and has been guaiac negative multiple times. She has had transfusions in the past and also iron. Last time she had IV iron was almost a year ago. She also has hypertrophic obstructive cardiomyopathy. Over last 2 weeks she has been getting dizzy, weak, and short of breath consistent with prior episodes of anemia and wonders if she might need to be transfused. She went to the clinic [facility] today where she had a bedside [id number] hemoglobin at 6.7. PD PAST MEDICAL HISTORY - Past Medical History Past Medical History: Yes Cardiovascular: Hypertension, Other Respiratory: None Neuro: None Endocrine/Autoimmune: None GI: None SPIRITS MODEL: None : None HEENT: None Psych: None Musculoskeletal: None Derm: None - Past Surgical History Past Surgical History: No /SPIRITS MODEL: Tubal ligation Derm: Other - Present Medications Home Medications: Ambulatory Orders Medication Instructions Recorded Confirmed Verapamil HCl [Verapamil ER] 180 mg PO DAILY 01/24/23 06/24/24 - Allergies Allergies/Adverse Reactions: Allergies Allergy/AdvReac Type Severity Reaction Status Date / Time No Known Drug Allergies Allergy Verified 06/24/24 15:36 - Social History Does the pt smoke?: No Smoking Status: Never smoker Does the pt drink ETOH?: No Does the pt have substance abuse?: No - Immunizations Immunizations are current?: Yes Immunizations: TDAP >10years/unknown - POLST Patient has POLST: No PD ED PE NORMAL - Vitals Vital signs reviewed: Yes - General General: Alert and oriented X 3 - Cardiac Cardiac: No murmur (Mild resting tachycardia) - Respiratory Respiratory: No respiratory distress, Clear bilaterally - Abdomen Abdomen: Non tender - Extremities Extremities: No edema, No calf tenderness / cord - Neuro Neuro: Alert and oriented X 3 Results - Vitals Vitals: Vital Signs - 24 hr 06/24/24 06/24/24 06/24/24 15:37 17:24 18:08 Temperature 36.5 C 36.2 C L Heart Rate 100 84 Heart Rate [ 86 Monitoring electrodes] Respiratory 16 19 21 Rate Blood Pressure 160/80 H 164/89 H Blood Pressure 141/97 H [Right Brachial artery] O2 Saturation 99 97 96 09/09/24 18:28 Temperature 36.1 C L Heart Rate Heart Rate [ 96 Monitoring electrodes] Respiratory 20 Rate Blood Pressure Blood Pressure 149/83 H [Right Brachial artery] O2 Saturation 99 Oxygen O2 Source Room air - Labs Labs: Laboratory Tests 06/24/24 06/24/24 15:53 15:53 Hgb 7.1 L Hct 24.9 L Blood Type A NEGATIVE Antibody Screen NEGATIVE Crossmatch IS Only See Detail PD Medical Decision Making - ED course ED course: She presents with symptomatic anemia. We discussed that her labs were kind of borderline for transfusion. That says she feels like she is acutely worsening over weeks and would like to go ahead and get transfused today after discussion of risks and benefits. Departure - Departure Disposition: 01 Home, Self Care Clinical Impression: Anemia Qualifiers: Anemia type: unspecified type Qualified Code(s): D64.9 - Anemia, unspecified Dyspnea Qualifiers: Dyspnea type: shortness of breath Qualified Code(s): R06.02 - Shortness of breath; R06.00 - Dyspnea, unspecified; R06.01 - Orthopnea Condition: Good Record reviewed to determine appropriate education?: Yes Instructions: ED Anemia Type Not Specified Follow-Up: Enrique Julian MD [Provider Admit Priv/Credential] - Comments: FOLLOWUP WITH ONCOLOGY CLINIC REGARDING YOUR RECURRENT SEVERE ANEMIA RETURN IF WORSE Forms: PCP List
[2024-06-24 18:57] VITALS: O2SAT 99
[2024-06-24 20:20] VITALS: BP 146/87
== END 2024-06-24 20:26 | disposition home or self-care (01) ==
LOC: ED 15:33
DX: D64.9 Anemia, unspecified (principal)
CPT/HCPCS: 36415; 85014; 85018; 86850; 86900; 86901; 86920; 99283; 99285; P9016